=== PATIENT | male | born 1965 | race Caucasian/White ===

== ENCOUNTER 2017-08-12 15:36 | Emergency (ER) | payer BC ==
[~2017-08-12] VITALS: Ht 182.9 cm; Wt 99.8 kg
[2017-08-12] MEDS ORDERED: AMLODIPINE BESY10 MG (15:40)
[2017-08-12] MEDS ORDERED: PANTOPRAZOLE SO20 MG (15:44)
== END 2017-08-12 18:20 | disposition home or self-care (01) ==
LOC: ER 15:36 → CPU-OBS 16:10 → ER 18:20
DX: R53.1 Weakness (principal); R07.89 Other chest pain
CPT/HCPCS: G0379; 93005